=== PATIENT | male | born 1960 | race Caucasian/White ===

== ENCOUNTER 2023-08-19 10:47 | Inpatient (IN) | payer MEDICARE, OTHER ==
[2023-08-19 11:09] VITALS: BMI 31.5
[2023-08-19] MEDS ORDERED: MAG HYDROX/AL HYDROX/SIMETH 30 ML UNIT-DOSE CUP PO PRN (11:22)
[2023-08-19] MEDS ORDERED: BISMUTH SUBSALICYLATE 524 MG/30 ML PO PRN (11:22)
[2023-08-19] MEDS ORDERED: guaiFENesin 600 MG TABLET.ER (FP) PO PRN (11:22)
[2023-08-19] MEDS ORDERED: NICOTINE POLACRILEX 2 MG LOZENGE BC PRN (11:22)
[2023-08-19] MEDS ORDERED: MAGNESIUM HYDROX 2400MG/30ML ORAL SUSPENSION 30 ML CUP PO PRN (11:22)
[2023-08-19] MEDS ORDERED: NALOXONE HCL 0.4 MG/ML VIAL IM PRN (11:22)
[2023-08-19] MEDS ORDERED: NALOXONE (NARCAN) HCL 4 MG/0.1 ML SPRAY NS PRN (11:22)
[2023-08-19] MEDS ORDERED: IBUPROFEN 400 MG TABLET (FP) PO PRN (11:22)
[2023-08-19] MEDS ORDERED: P-EPHED 60MG/TRIPROLIDI 2.5MG TABLET PO PRN (11:22)
[2023-08-19] MEDS ORDERED: NICOTINE POLACRILEX 2 MG GUM BUC PRN (11:22)
[2023-08-19] MEDS ORDERED: IBUPROFEN 600 MG TABLET (FP) PO PRN (11:22)
[2023-08-19] MEDS ORDERED: ONDANSETRON *ODT* 4 MG TABLET SL PRN (11:22)
[2023-08-19] MEDS ORDERED: BENZONATATE 200 MG CAPSULE PO PRN (11:22)
[2023-08-19] MEDS ORDERED: DICYCLOMINE HCL 10 MG CAPSULE PO PRN (11:22)
[2023-08-19] MEDS ORDERED: ACETAMINOPHEN 325 MG TABLET (FP) PO PRN (11:22)
[2023-08-19] MEDS ORDERED: POLYETHYLENE GLYCOL (HEALTHYLAX) 3350 17 GM PACKET PO PRN (11:22)
[2023-08-19] MEDS ORDERED: BENZOCAINE/MENTHOL (CHLORASEPTIC ) LOZENGE MM PRN (11:22)
[2023-08-19] MEDS ORDERED: LOPERAMIDE HCL 2 MG CAPSULE PO PRN (11:22)
[2023-08-19] MEDS ORDERED: methaDONE HCL 10 MG TABLET (FOR DETOX USE ONLY) ONE (12:28)
[2023-08-19] MEDS: methaDONE HCL 10 MG TABLET (FOR DETOX USE ONLY) PO ONE (12:32)
[2023-08-19] MEDS ORDERED: GABAPENTIN 400 MG CAPSULE PO PRN (13:42)
[2023-08-19] MEDS ORDERED: ALBUTEROL SO4 HFA INHALER IH PRN (13:42)
[2023-08-19] MEDS: ASPIRIN 81 MG CHEWABLE TABLETS PO SCH (19:19)
[2023-08-19] MEDS: hydrOXYzine PAMOATE 25 MG CAPSULE (FP) PO PRN (19:20)
[2023-08-19] MEDS: METHOCARBAMOL 500 MG TABLET PO PRN (19:21)
[2023-08-19] MEDS: MELATONIN 5 MG TABLETS PO SCH (21:19)
[2023-08-19] MEDS: ATORVASTATIN CA 40 MG TABLET (FP) PO SCH (21:19)
[2023-08-19] MEDS: THIAMINE 100 MG TABLET PO SCH (21:19)
[2023-08-20] MEDS: PRENATAL VITAMINS W/ FOLIC ACID TABLET (FP) PO SCH (09:40)
[2023-08-20] MEDS: LISINOPRIL 10 MG TABLET PO SCH (09:40)
[2023-08-20 11:34] LABS: MCH 28.8 pg (25.7-33.7); MCHC 34.1 g/dl (32.0-35.9); MEAN CELL VOLUME 84.5 fl (80-96); MEAN PLT VOLUME 6.4 fl (7.5-11.1); PLATELET COUNT 380 10^3/uL (134-434); RBC 4.86 M/mm3 (4.00-5.60); RDW 14.6 % (11.9-15.9); WHITE BLOOD COUNT 7.4 K/mm3 (4.0-10.0)
[2023-08-20 11:43] LABS: POTASSIUM 4.6 mmol/L (3.5-5.1)
[2023-08-20 11:52] LABS: BLOOD UREA NITROGEN 33.6 mg/dL (7-18)
[2023-08-20 11:53] LABS: CALCIUM 9.2 mg/dL (8.5-10.1)
[2023-08-20 11:54] LABS: ALBUMIN 3.3 g/dl (3.4-5.0)
[2023-08-20 11:57] LABS: CREATININE 1.3 mg/dL (0.55-1.3)
[2023-08-20 11:59] LABS: BILIRUBIN,TOTAL 0.3 mg/dL (0.2-1); TOT PROT 7.1 g/dl (6.4-8.2)
[2023-08-20] MEDS: cloNIDine HCL 0.1 MG TABLET PO PRN (18:55)
[2023-08-20] MEDS: SUVOREXANT 10 MG TABLET PO PRN (21:32)
[2023-08-21] MEDS: methaDONE HCL 10 MG TABLET (FOR DETOX USE ONLY) PO ONE (10:11)
[2023-08-21] MEDS: diazePAM 5 MG TABLET PO PRN (19:46)
[2023-08-23] MEDS: methaDONE HCL 10 MG TABLET (FOR DETOX USE ONLY) PO ONE (09:50)
[2023-08-24 05:40] VITALS: TEMP 97.7
[2023-08-24 09:17] VITALS: BP 92/57; PULSE 76; RESP 18
== END 2023-08-24 10:27 | disposition home or self-care (01) | DRG 897 ==
LOC: YASAS 10:47 → Y3N 12:21
PROVIDERS: ADMIT Allergy & Immunology; ATTEND Surgery
PROC: HZ2ZZZZ Detoxification Services for Substance Abuse Treatment (ICD-10-PCS; principal; 2023-08-19)
DX: F11.23 Opioid dependence with withdrawal (principal); F19.282 Other psychoactive substance dependence with psychoactive substance-induced sleep disorder; F10.230 Alcohol dependence with withdrawal, uncomplicated; F17.210 Nicotine dependence, cigarettes, uncomplicated; I10 Essential (primary) hypertension; E78.5 Hyperlipidemia, unspecified; J44.9 Chronic obstructive pulmonary disease, unspecified; Z85.51 Personal history of malignant neoplasm of bladder; Z93.6 Other artificial openings of urinary tract status; Z95.1 Presence of aortocoronary bypass graft
CPT/HCPCS: 36415; 80053; 80305; 85027; 86780; 93005; 93010